=== PATIENT | female | born 1970 | race Caucasian/White ===

== ENCOUNTER → 2017-07-02 | Outpatient (CLI) | payer OTHER ==
[~2017-07-02] MED LIST: AMOX-559 PO; CHOL10005 PO; DULO30CA35 PO; DULO30CA6 PO; DULO60CA56 PO; FOLI-68 PO; LEVO-3 PO; OSE75 PO; VITA-200 PO; VITA150T2 PO
--- NOTE | 2017-07-02 17:44 | RADIOLOGY IMAGING REPORT ---
FACILITY: [facility] - [place] PATIENT NAME: JOY WHITTAKER : [id number] MR: [id number] V: [id number] EXAM DATE: [id number] ORDERING PHYSICIAN: OCTAVIO KENNEY TECHNOLOGIST: Patricia Starks PROCEDURE:BILATERAL DIGITAL SCREENING MAMMOGRAM WITH CAD ASSISTED INTERPRETATION & 3D TOMOSYNTHESIS COMPARISON:Prior mammograms 10/23/15, 04/12/13, 01/23/12, 01/14/12, 10/10/10. INDICATIONS:Screening FINDINGS: Moderately heterogeneous fibroglandular tissue is seen throughout the breasts. The parenchymal pattern has remained stable allowing for difference in mammographic technique & patient positioning. There is no evidence of malignant appearing mass, malignant appearing calcifications or other secondary sign of malignancy in either breast. DIAGNOSTIC CATEGORY 1--NEGATIVE. RECOMMENDATIONS: ROUTINE MAMMOGRAM AND CLINICAL EVALUATION. IMPRESSION: BIRADS 1: Negative No significant abnormality is seen. Dictated by: Xochilt Jeffers M.D. on 07/02/2017 at 15:44 Transcribed by: EVERETT on 07/02/2017 at 15:49 Approved by: Xochilt Jeffers M.D. on 07/02/2017 at 17:43 [facility]
== END ==
LOC: MAMO 01:37
PROVIDERS: ATTEND Obstetrics & Gynecology
DX: Z12.31 Encounter for screening mammogram for malignant neoplasm of breast (principal)
CPT/HCPCS: 77063; 77067

== ENCOUNTER → 2017-11-17 | Outpatient (CLI) | payer OTHER ==
[~2017-11-17] MED LIST changes: +ZINC30CA2 PO
== END ==
LOC: LAB 13:02
PROVIDERS: ATTEND Internal Medicine Nephrology
DX: N18.2 Chronic kidney disease, stage 2 (mild) (principal)
CPT/HCPCS: 36415; 82570; 84100; 84156

== ENCOUNTER → 2017-11-17 | Outpatient (CLI) | payer OTHER | LOC: LAB 13:04 | PROVIDERS: ATTEND Obstetrics & Gynecology | DX: N95.1 Menopausal and female climacteric states (principal) | CPT/HCPCS: 82040; 82247; 82306; 82310; 82374; 82435; 82565; 82607; 82670; 82947; 83001; 84075; 84132; 84155; 84270; 84295; 84403; 84436; 84443; 84450; 84460; 84481; 84520; 85027; 86376 ==

== ENCOUNTER → 2018-03-10 | Outpatient (REF) ==
[2018-03-10 11:11] LABS: LDL CHOLESTEROL 78 mg/dl
== END ==
DX: Z02.9 Encounter for administrative examinations, unspecified (principal)

== ENCOUNTER → 2018-08-20 | Outpatient (CLI) | payer OTHER ==
--- NOTE | 2018-08-23 09:47 | RADIOLOGY IMAGING REPORT ---
FACILITY: [facility] - [place] PATIENT NAME: JOY WHITTAKER : [id number] MR: [id number] V: [id number] EXAM DATE: [id number] ORDERING PHYSICIAN: KELLY REYES TECHNOLOGIST: Patricia Starks PROCEDURE:BILATERAL DIAGNOSTIC DIGITAL MAMMOGRAM WITH CAD ASSISTED INTERPRETATION & 3D TOMOSYNTHESIS REASON FOR STUDY: Palpable abnormality in the 4-6 o'clock position of the Right breast FAMILY HISTORY OF BREAST CANCER: None BREAST PROCEDURES/TREATMENTS: None COMPARISON STUDIES: 07/02/17, 10/23/15, 04/12/13, 01/23/12, 01/14/12 MAMMOGRAM VIEWS OBTAINED: Bilateral 2D & 3D full field CC & MLO projections BREAST DENSITY: The breasts are heterogeneously dense which can obscure small masses. MAMMOGRAM FINDINGS: The parenchymal pattern has remained stable allowing for difference in mammographic technique & patient positioning. LIMITED RIGHT BREAST ULTRASOUND AREA SCANNED: 4-6 o'clock position of the Right breast ULTRASOUND FINDINGS: No sonographic abnormality is identified to account for patient's palpable findings. DIAGNOSTIC CATEGORY 1--NEGATIVE. RECOMMENDATIONS: ROUTINE MAMMOGRAM AND CLINICAL EVALUATION. CLINICAL EVALUATION. IMPRESSION: BIRADS 1: Negative. Clinical follow up recommended for patient's palpable findings in the 4-6 o'clock position of the Right breast. Dictated by: Xcohilt Jeffers M.D. on 08/20/2018 at 13:51 Transcribed by: EVERETT on 08/23/2018 at 7:47 Approved by: Xochilt Jeffers M.D. on 08/23/2018 at 9:44 [facility]
--- NOTE | 2018-08-23 09:47 | RADIOLOGY IMAGING REPORT ---
FACILITY: [facility] - [place] PATIENT NAME: JOY WHITTAKER : [id number] MR: [id number] V: [id number] EXAM DATE: [id number] ORDERING PHYSICIAN: KELLY REYES TECHNOLOGIST: Daren Maier RDMS, ANGEL PROCEDURE:BILATERAL DIAGNOSTIC DIGITAL MAMMOGRAM WITH CAD ASSISTED INTERPRETATION & 3D TOMOSYNTHESIS REASON FOR STUDY: Palpable abnormality in the 4-6 o'clock position of the Right breast FAMILY HISTORY OF BREAST CANCER: None BREAST PROCEDURES/TREATMENTS: None COMPARISON STUDIES: 07/02/17, 10/23/15, 04/12/13, 01/23/12, 01/14/12 MAMMOGRAM VIEWS OBTAINED: Bilateral 2D & 3D full field CC & MLO projections BREAST DENSITY: The breasts are heterogeneously dense which can obscure small masses. MAMMOGRAM FINDINGS: The parenchymal pattern has remained stable allowing for difference in mammographic technique & patient positioning. LIMITED RIGHT BREAST ULTRASOUND AREA SCANNED: 4-6 o'clock position of the Right breast ULTRASOUND FINDINGS: No sonographic abnormality is identified to account for patient's palpable findings. DIAGNOSTIC CATEGORY 1--NEGATIVE. RECOMMENDATIONS: ROUTINE MAMMOGRAM AND CLINICAL EVALUATION. CLINICAL EVALUATION. IMPRESSION: BIRADS 1: Negative. Clinical follow up recommended for patient's palpable findings in the 4-6 o'clock position of the Right breast. Dictated by: Xochilt Jeffers M.D. on 08/20/2018 at 14:43 Transcribed by: EVERETT on 08/23/2018 at 7:46 Approved by: Xochilt Jeffers M.D. on 08/23/2018 at 9:44 [facility]
== END ==
LOC: MAMO 01:00
PROVIDERS: ATTEND Obstetrics & Gynecology
DX: N63.21 Unspecified lump in the left breast, upper outer quadrant (principal)
CPT/HCPCS: 77062; 77066